=== PATIENT | male | born 1960 | race Caucasian/White ===

== ENCOUNTER 2017-03-27 04:26 | Inpatient (IN) | payer OTHER ==
[2017-03-27 04:40] VITALS: BMI 26.6
[2017-03-27] MEDS ORDERED: Sodium Chloride 0.9% 1,000 ML IV STA ×2 (04:59→08:17)
[2017-03-27] MEDS ORDERED: Morphine 2 mg/ml ISec IVP STA (04:59)
--- NOTE | 2017-03-27 05:07 | ED PDOC ---
Arrival/HPI - General Chief Complaint: Male Genitourinary Time Seen by Provider: 03/27/17 04:53 Historian: Patient - History of Present Illness Narrative History of Present Illness (Text): 03/27/17 04:57 57 year old male, whose past medical history includes diabetes and hypertension( noncompliant with medication), presents to the emergency department complaining of burning when urinating and noticeable blood in urine that began a few hours ago.Also with some occassional mild left flank discomfort. Patient denies any fever, chills, chest pain, shortness of breath, nausea, vomiting, diarrhea, back pain, neck pain, headache, dizziness, or any other complaints. PMD: None Time/Duration: 4-6 hours Symptom Onset: Sudden Symptom Course: Unchanged Activities at Onset: Light Context: Home Past Medical History - Provider Review Nursing Documentation Reviewed: Yes - Cardiac Hx Hypertension: Yes - Pulmonary Hx Respiratory Disorders: No - Neurological Hx Neurological Disorder: No - HEENT Hx HEENT Disorder: No - Renal Hx Renal Disorder: No - Endocrine/Metabolic Hx Diabetes Mellitus Type 2: Yes - Hematological/Oncological Hx Blood Disorders: No - Integumentary Hx Dermatological Disorder: No - Musculoskeletal/Rheumatological Hx Musculoskeletal Disorders: No - Gastrointestinal Hx Gastrointestinal Disorders: No - Genitourinary/Gynecological Hx Genitourinary Disorders: No - Psychiatric Hx Psychophysiologic Disorder: No Hx Substance Use: No - Surgical History Other/Comment: fistula removed - Anesthesia Hx Anesthesia: Yes Hx Anesthesia Reactions: No Hx Malignant Hyperthermia: No Family/Social History - Physician Review Nursing Documentation Reviewed: Yes Family/Social History: No Known Family HX Smoking Status: Former Smoker Hx Alcohol Use: Yes Frequency of alcohol use: Daily Hx Substance Use: No Allergies/Home Meds Allergies/Adverse Reactions: Allergies No Known Allergies Allergy (Verified 03/27/17 04:40) Home Medications: Home Meds Medication Instructions Recorded Confirmed Insulin Lispro [humALOG] 14 units SC DAILY 03/27/17 03/27/17 Review of Systems - Physician Review All systems were reviewed & negative as marked: Yes - Review of Systems Constitutional: absent: Fevers, Other (Chills) Respiratory: absent: SOB Cardiovascular: absent: Chest Pain Gastrointestinal: Abdominal Pain. absent: Diarrhea, Nausea, Vomiting Genitourinary Male: Dysuria, Hematuria. absent: Frequency Musculoskeletal: absent: Back Pain, Neck Pain Neurological: absent: Headache, Dizziness Physical Exam Vital Signs Reviewed: Yes Vital Signs Temp Pulse Resp BP Pulse Ox 03/27/17 06:38 105 H 18 165/102 H 100 03/27/17 05:48 113 H 173/108 H 03/27/17 05:39 114 H 18 173/108 H 100 03/27/17 04:26 99.0 F 117 H 18 170/122 H 100 Temperature: Afebrile Blood Pressure: Hypertensive Pulse: Tachycardic Respiratory Rate: Normal Appearance: Positive for: Well-Appearing, Non-Toxic, Comfortable Pain Distress: None Mental Status: Positive for: Alert and Oriented X 3 - Systems Exam Head: Present: Atraumatic, Normocephalic Pupils: Present: PERRL Extroacular Muscles: Present: EOMI Conjunctiva: Present: Normal Mouth: Present: Moist Mucous Membranes Neck: Present: Normal Range of Motion Respiratory/Chest: Present: Clear to Auscultation, Good Air Exchange. No: Respiratory Distress, Accessory Muscle Use Cardiovascular: Present: Regular Rate and Rhythm, Normal S1, S2. No: Murmurs Abdomen: Present: Normal Bowel Sounds. No: Tenderness, Distention, Peritoneal Signs Back: Present: Normal Inspection Upper Extremity: Present: Normal Inspection. No: Cyanosis, Edema Lower Extremity: Present: Normal Inspection. No: Edema Neurological: Present: GCS=15, CN II-XII Intact, Speech Normal Skin: Present: Warm, Dry, Normal Color. No: Rashes Psychiatric: Present: Alert, Oriented x 3, Normal Insight, Normal Concentration Medical Decision Making ED Course and Treatment: 03/27/17 04:57 Impression: 57 year old male presents complaining of left sided discomfort associated with urinary frequency, hematuria, and dysuria Plan: -- CT ABD & Pelvid w/o contrast -- Labs -- Morphine -- IV Fluids -- Urinalysis -- Reassess and disposition Progress Notes: - Lab Interpretations Lab Results: 03/27/17 05:15 03/27/17 05:15 Lab Results 03/27/17 05:15: WBC 10.3, RBC 5.22, Hgb 14.8, Hct 43.8, MCV 83.9, MCH 28.4, MCHC 33.8, RDW 12.6, Plt Count 161, MPV 11.2 H 03/27/17 05:15: Sodium 138, Potassium 4.6, Chloride 95 L, Carbon Dioxide 27, Anion Gap 21 H, BUN 13, Creatinine 1.0, Est GFR ( Amer) > 60, Est GFR ( Non-Af Amer) > 60, Random Glucose 308 H*, Calcium 9.8, Total Bilirubin 1.5 H, AST 41, ALT 78 H, Alkaline Phosphatase 106, Total Protein 8.5 H, Albumin 4.7, Globulin 3.8, Albumin/Globulin Ratio 1.2 03/27/17 05:15: Urine Color Red, Urine Appearance Turbid, Urine pH 6.5, Ur Specific Manson 1.015, Urine Protein >=300 H, Urine Glucose (UA) >=1000, Urine Ketones >=80, Urine Blood Large H, Urine Nitrate Positive H, Urine Bilirubin Negative, Urine Urobilinogen 2.0 H, Ur Leukocyte Esterase Moderate H, Urine RBC Tntc, Urine WBC 20 - 25, Ur Epithelial Cells 0 - 2, Urine Bacteria Small I have reviewed the lab results: Yes - RAD Interpretation Radiology Orders: 03/27/17 04:59 ABD & PELVIS W/O PO OR IV CONT [CT] Stat - Medication Orders Current Medication Orders: Ceftriaxone Sodium (Rocephin 1 Gram Ivpb) 1 gm in 100 mls @ 200 mls/hr IV ONCE STA PRN Reason: Protocol Stop: 03/27/17 07:21 Discontinued Medications Clonidine HCl (Catapres) 0.2 mg PO STAT STA Stop: 03/27/17 05:40 Last Admin: 03/27/17 05:48 Dose: 0.2 mg MAR Pulse and Blood Pressure Document 03/27/17 05:48 AD (Rec: 03/27/17 05:48 AD [id number]) Pulse Pulse Rate (60-90 beats/min) 113 Blood Pressure Blood Pressure (100/60-150/90 mm Hg) 173/108 Sodium Chloride (Sodium Chloride 0.9%) 1,000 mls @ 999 mls/hr IV .Q1H1M STA Stop: 03/27/17 05:59 Last Admin: 03/27/17 05:23 Dose: 999 mls/hr eMAR Start Stop Document 03/27/17 05:23 AD (Rec: 03/27/17 05:23 AD [id number]) Intravenous Solution Start Date 03/27/17 Start Time 05:23 Morphine Sulfate (Morphine) 2 mg IVP STAT STA Stop: 03/27/17 05:00 Last Admin: 03/27/17 05:23 Dose: 2 mg MAR Pain Assessment Document 03/27/17 05:23 AD (Rec: 03/27/17 05:24 AD [id number]) Pain Reassessment Is this a pain reassessment? No Presence of Pain Presence of Pain Yes Pain Scale Used Pain Scale Used Numeric Location Left, Right or Bilateral Left Upper or Lower Lower Pain Location Body Site Back Description Description Constant Intensity of Pain at present 5 IVP Administration Document 03/27/17 05:23 AD (Rec: 03/27/17 05:24 AD [id number]) Charges for Administration # of IVP Administrations 1 - Transfer of Care Patient signed out to Dr:: Dominguez Pending Radiology Studies:: CT Abd/Pelvis/reassess/final disposition - Scribe Statement The provider has reviewed the documentation as recorded by the Liya Toure Provider Scribe Attestation: All medical record entries made by the Prabhakaribzeenat were at my direction and personally dictated by me. I have reviewed the chart and agree that the record accurately reflects my personal performance of the history, physical exam, medical decision making, and the department course for this patient. I have also personally directed, reviewed, and agree with the discharge instructions and disposition. Disposition/Present on Arrival - Present on Arrival Any Indicators Present on Arrival: No History of DVT/PE: No History of Uncontrolled Diabetes: No Urinary Catheter: No History of Decub. Ulcer: No History Surgical Site Infection Following: None - Disposition Have Diagnosis and Disposition been Completed?: No Diagnosis: Hematuria, UTI (urinary tract infection) Disposition Time: 07:00 Condition: STABLE Referrals: PCP,NO [Primary Care Provider] - Follow up with primary Forms: [employer] (Malaysian)
[2017-03-27 06:10] LABS: PH,URINE 6.5 (4.7-8.0); URINE BILIRUBIN NEGATIVE (NEGATIVE); URINE BLOOD LARGE (NEGATIVE); URINE GLUCOSE (UA) >=1000 mg/dL (NEGATIVE); URINE LEUKOCYTE ESTERASE MODERATE Leu/uL (NEGATIVE); URINE NITRATE POSITIVE (NEGATIVE); URINE PROTEIN >=300 mg/dL (<30 mg/dL)
[2017-03-27 06:11] LABS: HEMOGLOBIN 14.8 g/dL (14.0-18.0); MEAN CELL VOLUME 83.9 fl (80.0-105.0); MEAN CORPUSCULAR HEMOGLOBIN 28.4 pg (25.0-35.0); MEAN CORPUSCULAR HGB CONC 33.8 g/dl (31.0-37.0); MEAN PLATELET VOLUME 11.2 fl (7.0-11.0); RBC 5.22 10^6/uL (3.5-6.1); RED CELL DISTRIBUTION WIDTH 12.6 % (11.5-14.5); WHITE BLOOD COUNT 10.3 10^3/ul (4.5-11.0)
[2017-03-27 06:16] LABS: URINE APPEARANCE TURBID (CLEAR); URINE COLOR RED (YELLOW)
[2017-03-27 06:30] LABS: URINE BACTERIA SMALL (NEG); URINE EPITHELIAL CELLS 0 - 2 /hpf (0-5); URINE RBC TNTC /hpf (0-2); URINE WBC 20 - 25 /hpf (0-6)
[2017-03-27 06:37] LABS: ALB/GLOB RATIO 1.2 (1.1-1.8); ALBUMIN 4.7 g/dL (3.0-4.8); ALT/SGPT 78 U/L (7-56); AST/SGOT 41 U/L (17-59); BLOOD UREA NITROGEN 13 mg/dL (7-21); CALCIUM 9.8 mg/dL (8.4-10.5); GFR AFRICAN-AMERICAN > 60; GFR NON-AFRICAN AMERICAN > 60
[2017-03-27] MEDS ORDERED: cefTRIAXone 1 gm 1 GM/100 ML BAG IV STA (06:52)
--- NOTE | 2017-03-27 07:13 | ED PDOC ---
Physical Exam Vital Signs Reviewed: Yes Vital Signs Temp Pulse Resp BP Pulse Ox 03/27/17 07:12 99.1 F 103 H 16 147/74 98 03/27/17 06:38 105 H 18 165/102 H 100 03/27/17 05:48 113 H 173/108 H 03/27/17 05:39 114 H 18 173/108 H 100 03/27/17 04:26 99.0 F 117 H 18 170/122 H 100 Temperature: Afebrile Blood Pressure: Hypertensive Pulse: Tachycardic Respiratory Rate: Normal Appearance: Positive for: Well-Appearing, Other (uncomfortable) Pain Distress: None Mental Status: Positive for: Alert and Oriented X 3 - Systems Exam Head: Present: Atraumatic, Normocephalic Pupils: Present: PERRL, Other (no nystagmus, no photophobia, sclera anicteric, visual field intact b/l) Extroacular Muscles: Present: EOMI Conjunctiva: Present: Normal Ears: Present: Normal Mouth: Present: Moist Mucous Membranes, Normal Teeth Pharnyx: Present: Normal Neck: Present: Normal Range of Motion Respiratory/Chest: Present: Clear to Auscultation, Good Air Exchange. No: Respiratory Distress, Accessory Muscle Use Cardiovascular: Present: Regular Rate and Rhythm, Normal S1, S2. No: Murmurs Abdomen: Present: Normal Bowel Sounds, Other (well nourished male, no anterior focal abd tenderness, no masses/rebound/guarding/rigidity, no arreola's sign, no mcburney's point tenderness). No: Tenderness, Distention, Peritoneal Signs Back: Present: Normal Inspection, CVA Tenderness (right CVAT, no midline tenderness, no step off) Upper Extremity: Present: Normal Inspection, Normal ROM, NORMAL PULSES, Neurovascularly Intact, Capillary Refill < 2s. No: Cyanosis, Edema Lower Extremity: Present: Normal Inspection, NORMAL PULSES, Normal ROM. No: Edema Neurological: Present: GCS=15, CN II-XII Intact, Speech Normal Skin: Present: Warm, Dry, Normal Color, Other (cap refill ~ 1sec, no ulcerations , no petechiae). No: Rashes Psychiatric: Present: Alert, Oriented x 3, Normal Insight, Normal Concentration Medical Decision Making ED Course and Treatment: 03/27/17 07:08 received pt endorsement from Dr. Cyrstal. pt is awaiting CT abd/pelvis results; concern for acute pyelonephritis/infected kidney stones; pt can be dispositioned accordingly 03/27/17 07:51 pt is currently comfortable pt is made aware of his medical lab results pt expressed concern regarding his lack of medication compliance 03/27/17 08:19 pt is made aware of his medical results agrees with admission oncall PCP/hospitalists was paged and contacted, Dr Sanchez made aware of pt's medical complaints and ED diagnostic findings; agrees with ED mgt/txt, and agrees with admission Re-evaluation Time: 07:52 Reassessment Condition: Re-examined, Improved - Lab Interpretations Lab Results: 03/27/17 05:15 03/27/17 05:15 Lab Results 03/27/17 05:15: WBC 10.3, RBC 5.22, Hgb 14.8, Hct 43.8, MCV 83.9, MCH 28.4, MCHC 33.8, RDW 12.6, Plt Count 161, MPV 11.2 H 03/27/17 05:15: Sodium 138, Potassium 4.6, Chloride 95 L, Carbon Dioxide 27, Anion Gap 21 H, BUN 13, Creatinine 1.0, Est GFR ( Amer) > 60, Est GFR ( Non-Af Amer) > 60, Random Glucose 308 H*, Calcium 9.8, Total Bilirubin 1.5 H, AST 41, ALT 78 H, Alkaline Phosphatase 106, Total Protein 8.5 H, Albumin 4.7, Globulin 3.8, Albumin/Globulin Ratio 1.2 03/27/17 05:15: Urine Color Red, Urine Appearance Turbid, Urine pH 6.5, Ur Specific [place] 1.015, Urine Protein >=300 H, Urine Glucose (UA) >=1000, Urine Ketones >=80, Urine Blood Large H, Urine Nitrate Positive H, Urine Bilirubin Negative, Urine Urobilinogen 2.0 H, Ur Leukocyte Esterase Moderate H, Urine RBC Tntc, Urine WBC 20 - 25, Ur Epithelial Cells 0 - 2, Urine Bacteria Small abnl UA, elevated GLUC I have reviewed the lab results: Yes Interpretation: Abnormal lab values (abnl U/A) - RAD Interpretation Radiology Orders: 03/27/17 04:59 ABD & PELVIS W/O PO OR IV CONT [CT] Stat IMPRESSION: 1. There is urinary bladder wall thickening. This is nonspecific but can be seen in the setting of cystitis, please correlate clinically. Close clinical and imaging followup is recommended to confirm resolution following treatment. 2. There is abrupt narrowing of the sigmoid colon (series 2, image 69). There is a moderate amount of stool proximal to this point. No obvious obstruction is present. Evaluation of the sigmoid colon is recommended. Followup colonoscopy is recommended if patient has not had a screening colonoscopy recently. 3. There is asymmetric soft tissue fullness in the right perineum (series 2, image 85). This may simply reflect patient's normal anatomy. Rectal examination is recommended. Thank you for allowing us to participate in the care of your patient. Dictated and Authenticated by: Tim Gann MD Layup Worker: Radiologist - Medication Orders Current Medication Orders: Sodium Chloride (Sodium Chloride 0.9%) 1,000 mls @ 100 mls/hr IV .Q10H [facility] Last Admin: 03/27/17 08:12 Dose: 100 mls/hr eMAR Start Stop Document 03/27/17 08:12 AB (Rec: 03/27/17 08:12 AB [id number]) Intravenous Solution Start Date 03/27/17 Start Time 08:12 End Date 03/27/17 Sodium Chloride (Sodium Chloride 0.9%) 1,000 mls @ 100 mls/hr IV .Q10H STA Stop: 03/27/17 18:16 Discontinued Medications Aspirin (Aspirin) 325 mg PO STAT STA Stop: 03/27/17 08:02 Last Admin: 03/27/17 08:08 Dose: 325 mg Clonidine HCl (Catapres) 0.2 mg PO STAT STA Stop: 03/27/17 05:40 Last Admin: 03/27/17 05:48 Dose: 0.2 mg MAR Pulse and Blood Pressure Document 03/27/17 05:48 AD (Rec: 03/27/17 05:48 AD [id number]) Pulse Pulse Rate (60-90) 113 Blood Pressure Blood Pressure (100/60-150/90) 173/108 Sodium Chloride (Sodium Chloride 0.9%) 1,000 mls @ 999 mls/hr IV .Q1H1M STA Stop: 03/27/17 05:59 Last Admin: 03/27/17 05:23 Dose: 999 mls/hr eMAR Start Stop Document 03/27/17 05:23 AD (Rec: 03/27/17 05:23 AD [id number]) Intravenous Solution Start Date 03/27/17 Start Time 05:23 Ceftriaxone Sodium (Rocephin 1 Gram Ivpb) 1 gm in 100 mls @ 200 mls/hr IV ONCE STA PRN Reason: Protocol Stop: 03/27/17 07:21 Last Admin: 03/27/17 07:09 Dose: 200 mls/hr eMAR Start Stop Document 03/27/17 07:09 AD (Rec: 03/27/17 07:10 AD [id number]) Intravenous Solution Start Date 03/27/17 Start Time 07:09 Morphine Sulfate (Morphine) 2 mg IVP STAT STA Stop: 03/27/17 05:00 Last Admin: 03/27/17 05:23 Dose: 2 mg MAR Pain Assessment Document 03/27/17 05:23 AD (Rec: 03/27/17 05:24 AD [id number]) Pain Reassessment Is this a pain reassessment? No Presence of Pain Presence of Pain Yes Pain Scale Used Pain Scale Used Numeric Location Left, Right or Bilateral Left Upper or Lower Lower Pain Location Body Site Back Description Description Constant Intensity of Pain at present 5 IVP Administration Document 03/27/17 05:23 AD (Rec: 03/27/17 05:24 AD [id number]) Charges for Administration # of IVP Administrations 1 Disposition/Present on Arrival - Present on Arrival Any Indicators Present on Arrival: No History of DVT/PE: No History of Uncontrolled Diabetes: No Urinary Catheter: No History of Decub. Ulcer: No History Surgical Site Infection Following: None - Disposition Have Diagnosis and Disposition been Completed?: Yes Diagnosis: Hematuria, UTI (urinary tract infection), Acute hyperglycemia, Uncontrolled diabetes mellitus, Non compliance w medication regimen Disposition: HOSPITALIZED Disposition Time: 08:21 Patient Plan: Admission Patient Problems: Current Active Problems Problem Status Onset Hematuria Acute UTI (urinary tract infection) Acute Acute hyperglycemia Acute Uncontrolled diabetes mellitus Acute Non compliance w medication regimen Acute Condition: STABLE Referrals: PCP,NO [Primary Care Provider] - Follow up with primary Forms: [employer] ([place]otho)
[2017-03-27] MEDS: Sodium Chloride 0.9% 1,000 ML IV SCH (08:12)
--- NOTE | 2017-03-27 08:23 | CT ---
EXAM: CT Abdomen and Pelvis Without Intravenous Contrast CLINICAL HISTORY: 57 years old, male; Pain; Abdominal pain; Flank; Left; Additional info: Left flank pain with blood in urine. TECHNIQUE: Axial computed tomography images of the abdomen and pelvis without intravenous contrast. All CT scans at this facility use one or more dose reduction techniques, viz.: automated exposure control; ma/kV adjustment per patient size (including targeted exams where dose is matched to indication; i.e. head); or iterative reconstruction technique. Coronal and sagittal reformatted images were created and reviewed. COMPARISON: No relevant prior studies available. FINDINGS: Lower thorax: No acute findings. ABDOMEN: Liver: There is fatty infiltration throughout the liver. Gallbladder and bile ducts: Unremarkable. No calcified stones. No ductal dilation. Pancreas: Unremarkable. No ductal dilation. Spleen: Unremarkable. No splenomegaly. Adrenals: Unremarkable. No mass. Kidneys and ureters: Unremarkable. No obstructing stones. No hydronephrosis. Stomach and bowel: There is abrupt narrowing of the sigmoid colon (series 2, image 69). There is a moderate amount of stool proximal to this point. No obvious obstruction is present. Evaluation of the sigmoid colon is recommended. Followup colonoscopy is recommended if patient has not had a screening colonoscopy recently. There is asymmetric soft tissue fullness in the right perineum (series 2, image 85). This may simply reflect patient's normal anatomy. Rectal examination is recommended. No mucosal thickening. Appendix: A normal appendix is identified. PELVIS: Bladder: There is urinary bladder wall thickening. This is nonspecific but can be seen in the setting of cystitis, please correlate clinically. No stones. Reproductive: The prostate is enlarged. ABDOMEN and PELVIS: Intraperitoneal space: Unremarkable. No free air. No significant fluid collection. Bones/joints: No acute fracture. No dislocation. Soft tissues: There are bilateral fat-containing inguinal hernias. Vasculature: There are calcified atherosclerotic changes of the aorta. No abdominal aortic aneurysm. Lymph nodes: Unremarkable. No enlarged lymph nodes. IMPRESSION: 1. There is urinary bladder wall thickening. This is nonspecific but can be seen in the setting of cystitis, please correlate clinically. Close clinical and imaging followup is recommended to confirm resolution following treatment. 2. There is abrupt narrowing of the sigmoid colon (series 2, image 69). There is a moderate amount of stool proximal to this point. No obvious obstruction is present. Evaluation of the sigmoid colon is recommended. Followup colonoscopy is recommended if patient has not had a screening colonoscopy recently. 3. There is asymmetric soft tissue fullness in the right perineum (series 2, image 85). This may simply reflect patient's normal anatomy. Rectal examination is recommended.
--- NOTE | 2017-03-27 09:19 | CP.PCM.HP ---
<Romario Villagran - Last Filed: 03/27/17 09:12> History of Present Illness - History of Present Illness History of Present Illness: Internal Medicine H&P for Hospitalist Service Romario Villagran, PGY-2 CC: Burning with urination and blood in urine HPI: This is a 57 yo M with PMH of DMII, HTN, HLD (medication non-compliant), and alcohol abuse (1 pint of vodka daily) who presents with complaint of burning with urination and trista hematuria that began at midnight. As per patient, he had sudden urge to go the bathroom at midnight, and felt burning while urinating, and then noticed the hematuria. Denies any similar episode in the past, any history of kidney stones or hematuria, nausea, emesis, diarrhea, constipation, decreased urinary flow, or urinary urge/frequency prior to the episode of hematuria. Since the first episode, he has urinated several more times, all with hematuria, although he reports his most recent voiding episode ( about 1 hr prior to exam in the ED) looks more clear/less bloody, and he is feeling better in general. Reports occasionally having shakes when not drinking , but none recently, and last drink was 6pm yesterday evening (~15 hrs with no alcohol). 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 He had multiple surgeries on it in the past with no resolution prior to coming to the [place], and had two further surgeries here , the last being a resection that resolved the issue. Denies any other abdominal surgeries, any obstruction or hematochezia/bright red blood per rectum. Denies any history of IBS. Admits to general malaise at presentation of symptoms last night, but currently denies fevers, chills, chest pain, shortness of breath, tremors, nausea, emesis, diarrhea, constipation, focal weakness, or non-healing wounds on lower extremities (checks daily). All other ROS in 12-system review negative. In the ED, CT abd/pelvis was obtained, notable for bladder wall thickening, no nephrolithiasis or obstruction noted, and no hydronephrosis noted. PMH: As above PSH: multiple unspecified colonic surgeries relating to fistula, fistula resection approximately 6 yrs prior, colonoscopy approx 3-4 yrs prior FHx: 2 sisters with hx of nephrolithiasis, HTN in multiple family members ( sisters and parents) SHx: former tobacco user (1ppd cigarettes for 24 yrs, quit 3 yrs prior), active alcohol abuse (1 pint per day of vodka, unable to state for how long), denies illicits/IVDA PMD: None, last saw a doctor > 1 yr prior Present on Admission - Present on Admission Any Indicators Present on Admission: Yes History of DVT/PE: No History of Uncontrolled Diabetes: Yes Urinary Catheter: No Decubitus Ulcer Present: No Review of Systems - Review of Systems All systems: reviewed and no additional remarkable complaints except (as per HPI ) Past Patient History - Past Social History Smoking Status: Former Smoker - CARDIAC Hx Hypertension: Yes - PULMONARY Hx Respiratory Disorders: No - NEUROLOGICAL Hx Neurological Disorder: No - HEENT Hx HEENT Problems: No - RENAL Hx Chronic Kidney Disease: No - ENDOCRINE/METABOLIC Hx Diabetes Mellitus Type 2: Yes - HEMATOLOGICAL/ONCOLOGICAL Hx Blood Disorders: No - INTEGUMENTARY Hx Dermatological Problems: No - MUSCULOSKELETAL/RHEUMATOLOGICAL Hx Musculoskeletal Disorders: No - GASTROINTESTINAL Hx Gastrointestinal Disorders: No - GENITOURINARY/GYNECOLOGICAL Hx Genitourinary Disorders: No - PSYCHIATRIC Hx Psychophysiologic Disorder: No Hx Substance Use: No - SURGICAL HISTORY Other/Comment: fistula removed - ANESTHESIA Hx Anesthesia: Yes Hx Anesthesia Reactions: No Hx Malignant Hyperthermia: No Meds Allergies/Adverse Reactions: Allergies Allergy/AdvReac Type Severity Reaction Status Date / Time No Known Allergies Allergy Verified 03/27/17 04:40 Physical Exam - Constitutional Appears: Well, Non-toxic, No Acute Distress - Head Exam Head Exam: ATRAUMATIC, NORMAL INSPECTION, NORMOCEPHALIC - Eye Exam Eye Exam: EOMI. absent: Conjunctival injection, Normal appearance, Scleral icterus (dirty sclera, but not grossly icteric) Pupil Exam: absent: Irregular, Unequal - ENT Exam ENT Exam: Mucous Membranes Moist - Neck Exam Neck exam: Positive for: Full Rom, Normal Inspection - Respiratory Exam Respiratory Exam: Clear to Auscultation Bilateral, NORMAL BREATHING PATTERN. absent: Accessory Muscle Use, Chest Wall Tenderness, Decreased Breath Sounds, Prolonged Expiratory Phase, Rales, Rhonchi, Wheezes - Cardiovascular Exam Cardiovascular Exam: Tachycardia, REGULAR RHYTHM, +S1, +S2. absent: Bradycardia , Irregular Rhythm, JVD, +S4 - GI/Abdominal Exam GI & Abdominal Exam: Normal Bowel Sounds, Soft, Tenderness (mild discomfort to palpation at LLQ radiating to left flank, mild L CVA tenderness). absent: Diminished Bowel Sounds, Distended (obese but not distended), Firm, Guarding, Hyperactive Bowel Sounds, Hypoactive Bowel Sounds, Organomegaly, Rigid Additional comments: no appreciable fluid wave or caput medusa - Rectal Exam Rectal Exam: Deferred - Extremities Exam Extremities exam: Positive for: pedal pulses present (faintly palpable +1 dorsalis pedis bilaterally). Negative for: calf tenderness, normal inspection, pedal edema, tenderness Additional comments: multiple spots of waxy-appearing sking on bilateral LE from mid-damon to feet, cool and dry bilateral LE; concerning for mild PVD - Back Exam Back exam: CVA tenderness (L) (mildly tender to percussion). absent: CVA tenderness (R), muscle spasm - Neurological Exam Neurological exam: Alert, Oriented x3 Additional comments: awake and alert, moving all extremities spontaneously, following all commands appropriately - Psychiatric Exam Psychiatric exam: Normal Affect, Normal Mood - Skin Skin Exam: Dry, Intact, Normal Color, Warm Additional comments: except as noted on extremities exam Results - Vital Signs Recent Vital Signs: Last Vital Signs Temp 99.1 F 03/27/17 07:12 Pulse 103 H 03/27/17 07:12 Resp 16 03/27/17 07:12 BP 147/74 03/27/17 07:12 Pulse Ox 98 03/27/17 07:12 - Labs Result Diagrams: 03/27/17 05:15 03/27/17 05:15 Assessment & Plan - Assessment and Plan (Free Text) Assessment: This is a 57 yo M with PMH of DMII, HTN, HLD (medication non-compliant), and alcohol abuse (1 pint of vodka daily) who presents with complaint of burning with urination and trista hematuria that began at midnight. He is being admitted for UTI, and likely cystitis vs possible developing pyelonephritis in the setting of uncontrolled DM. Plan: 1) Burning urination with trista hematuria - improving while in the ED -Cystitis vs obstructing nephrolithiasis vs Bladder diverticuli vs pyelonephritis -UA notable for positive nitrates, moderate leuk esterase, TNTC RBCs, and 20-25 WBCs; also notable for elevated protein and glucose in urine, consistent with uncontrolled HTN and DM -CT abd/pelvis obtained in ED, notable for bladder wall thickening, but no nephrolithiasis/hydronephrosis, so not nephrolithiasis and less likely pyelonephritis -Received rocephin IVPB in ED, will continue -Urine cultures pending, will f/u 2) Uncontrolled DM -A1c ordered, blood glucose in ED 301 -Gap present on initial labs, but may be false due to dehydration (patient reports frequent urination for 9 hours and no PO intake for ~12 hours), will repeat after receiving IV fluids and reassess -Medium sliding scale insulin with meals, Consistent carb diet ordered -instrument man consulted 3) HTN -received Clonidine x1 in ED for BPs 170's/100's, now in 140's/70's -Cr 1.0, so will start on Lisinopril for HTN, cardio and renal protective, especially in setting of DM -continue to monitor 4) Elevated Total bilirubin -may be 2/2 alcohol abuse, although AST/ALT ratio not consistent with alcohol -Direct bilirubin ordered, will follow up -Hepatitis panel ordered, will follow up -fatty infiltration of liver noted on CT Abd/pelvis 5) Alcohol abuse -Alcohol level ordered -CIWA protocol ordered, Ativan 1mg IVP q6 PRN ordered -Banana bag x1, Multivitamin/Folic Acid/Thiamine daily PO ordered -will obtain EKG to assess QTc 6) Sigmoid colon narrowing on CT abd/pelvis -unlikely obstruction, patient reports moving bowels daily without difficulty, not using daily laxatives, not straining daily -narrowing may be secondary to colonic fistula resection (site of fistula and resection unclear, patient unable to specify) -no need for acute intervention at this time, can revisit if patient develops difficulty moving bowels or develops signs/symptoms of obstruction Dispo: Med/Surg for IV antibiotic and IV fluids for likely cystitis in setting of uncontrolled DM FEN: Consistent carb, Banana bag x1, NS 100cc/hr, Thiamine/Folic acid/ multivitamin daily Access: Peripheral IV Consults: Diabetic education Ppx: Protonix for GI, SCDs for DVT Patient seen, reviewed, and discussed with attending, Dr. Sanchez. Decision To Admit - Pt Status Changed To: Hospital Disposition Of: Inpatient Admission - Admit Certification Admit to Inpatient:: After my assessment, the patient will require hospitalization for at least two midnights. This is because of the severity of symptoms shown, intensity of services needed, and/or the medical risk in this patient being treated as an outpatient. - . Bed Request Type: Med/Surg <Ruth Sanchez B - Last Filed: 03/27/17 18:28> Results - Vital Signs Recent Vital Signs: Last Vital Signs Temp 99 F 03/27/17 15:53 Pulse 97 H 03/27/17 15:53 Resp 18 03/27/17 15:53 BP 142/92 H 03/27/17 15:53 Pulse Ox 98 03/27/17 15:53 - Labs Result Diagrams: 03/27/17 05:15 03/27/17 14:10 Labs: Laboratory Results - last 24 hr 03/27/17 03/27/17 03/27/17 09:30 09:30 09:30 Sodium Potassium Chloride Carbon Dioxide Anion Gap BUN Creatinine Est GFR ( Amer) Est GFR (Non-Af Amer) POC Glucose (mg/dL) Random Glucose Hemoglobin A1c 12.4 H Calcium Direct Bilirubin 0.7 H Triglycerides 222 H Cholesterol 408 H LDL Cholesterol Direct 294 H HDL Cholesterol 63 H Alcohol, Quantitative < 10 03/27/17 03/27/17 03/27/17 11:30 14:10 16:15 Sodium 132 Potassium 4.1 Chloride 95 L Carbon Dioxide 29 Anion Gap 11 BUN 18 Creatinine 1.1 Est GFR ( Amer) > 60 Est GFR (Non-Af Amer) > 60 POC Glucose (mg/dL) 247 H 300 H Random Glucose 352 H* Hemoglobin A1c Calcium 8.7 Direct Bilirubin Triglycerides Cholesterol LDL Cholesterol Direct HDL Cholesterol Alcohol, Quantitative Attending/Attestation - Attestation I have personally seen and examined this patient.: Yes I have fully participated in the care of the patient.: Yes I have reviewed all pertinent clinical information: Yes Notes (Text): This is a 57 yo M with PMH of DMII, HTN, HLD (medication non-compliant), and alcohol abuse (1 pint of vodka daily) who presents with complaint of burning with urination and trista hematuria that began at midnight. As per patient, he had sudden urge to go the bathroom at midnight, and felt burning while urinating , and then noticed the hematuria. Denies any similar episode in the past, any history of kidney stones or hematuria, nausea, emesis, diarrhea, constipation, decreased urinary flow, or urinary urge/frequency prior to the episode of hematuria. Since the first episode, he has urinated several more times, all with hematuria, although he reports his most recent voiding episode (about 1 hr prior to exam in the ED) looks more clear/less bloody, and he is feeling better in general. Reports occasionally having shakes when not drinking, but none recently, and last drink was 6pm yesterday evening (~15 hrs with no alcohol). 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 He had multiple surgeries on it in the past with no resolution prior to coming [place], and had two further surgeries here, the last being a resection that resolved the issue. Denies any other abdominal surgeries, any obstruction or hematochezia/bright red blood per rectum. Denies any history of IBS. Admits to general malaise at presentation of symptoms last night, but currently denies fevers, chills, chest pain, shortness of breath, tremors, nausea, emesis, diarrhea, constipation, focal weakness, or non-healing wounds on lower extremities (checks daily). All other ROS in 12-system review negative. In the ED, CT abd/pelvis was obtained, notable for bladder wall thickening, no nephrolithiasis or obstruction noted, and no hydronephrosis noted. PMH: As above PSH: multiple unspecified colonic surgeries relating to fistula, fistula resection approximately 6 yrs prior, colonoscopy approx 3-4 yrs prior FHx: 2 sisters with hx of nephrolithiasis, HTN in multiple family members ( sisters and parents) SHx: former tobacco user (1ppd cigarettes for 24 yrs, quit 3 yrs prior), active alcohol abuse (1 pint per day of vodka, unable to state for how long), denies illicits/IVDA PMD: None, last saw a doctor > 1 yr prior
[2017-03-27] MEDS ORDERED: Multivitamin (MVI) 10 ML, Thiamine 100 MG, Folic Acid 1 MG in Sodium Chloride 0.9% 1,00... IV ONE (09:21)
[2017-03-27] MEDS: Pantoprazole 40 mg EC Tab PO SCH (10:23)
[2017-03-27 10:40] LABS: BILIRUBIN,DIRECT 0.7 mg/dL (0.0-0.4)
[2017-03-27] MEDS: Insulin Lispro (humaLOG) MEDIUM Coverage SC SCH ×3 (12:09→22:01)
[2017-03-27 14:36] LABS: BLOOD UREA NITROGEN 18 mg/dL (7-21); CALCIUM 8.7 mg/dL (8.4-10.5); GFR AFRICAN-AMERICAN > 60; GFR NON-AFRICAN AMERICAN > 60
[2017-03-27] MEDS ORDERED: Influenza Vaccine 60 mcg/0.5 mL SYR (4YR UP) IM ONE (15:00)
[2017-03-27] MEDS ORDERED: Pneumococcal 23-Valent Vaccine IM ONE (15:00)
[2017-03-27] MEDS ORDERED: Insulin Detemir 100 units/ml Vial (Levemir) SC SCH (22:00)
[2017-03-28] MEDS: Pantoprazole 40 mg EC Tab PO SCH (06:27)
[2017-03-28 07:30] LABS: BASO # 0.02 K/mm3 (0.0-2.0); BASO % 0.2 % (0.0-3.0); EOS # 0.1 (0.0-0.7); EOS % 1.2 % (1.5-5.0); GRAN # 5.92 (1.4-6.5); LYMPH # 1.7 (1.2-3.4); LYMPH % 20.3 % (22.0-35.0); MEAN CELL VOLUME 84.9 fl (80.0-105.0); MEAN CORPUSCULAR HEMOGLOBIN 27.8 pg (25.0-35.0); MEAN CORPUSCULAR HGB CONC 32.8 g/dl (31.0-37.0); MEAN PLATELET VOLUME 10.9 fl (7.0-11.0); MONO # 0.7 (0.1-0.6); MONO % 8.3 % (1.0-6.0); RBC 4.31 10^6/uL (3.5-6.1); RED CELL DISTRIBUTION WIDTH 12.7 % (11.5-14.5); WHITE BLOOD COUNT 8.5 10^3/ul (4.5-11.0)
[2017-03-28 07:48] LABS: ALB/GLOB RATIO 1.1 (1.1-1.8); ALBUMIN 3.7 g/dL (3.0-4.8); ALT/SGPT 48 U/L (7-56); AST/SGOT 26 U/L (17-59); BLOOD UREA NITROGEN 16 mg/dL (7-21); CALCIUM 8.5 mg/dL (8.4-10.5); GFR AFRICAN-AMERICAN > 60; GFR NON-AFRICAN AMERICAN > 60; MAGNESIUM 2.2 mg/dL (1.7-2.2)
[2017-03-28] MEDS: Insulin Lispro (humaLOG) MEDIUM Coverage SC SCH ×4 (08:33→22:13)
[2017-03-28] MEDS: Multivitamin With Minerals Tab PO SCH (08:33)
[2017-03-28] MEDS: cefTRIAXone 2 GM IN NS 2 GM/100 ML BAG IVPB SCH (10:29)
[2017-03-28] MEDS: Sodium Chloride 0.9% 1,000 ML IV SCH (10:44)
[2017-03-28] MEDS ORDERED: Insulin Detemir 100 units/ml Vial (Levemir) SC SCH (11:52)
[2017-03-28 12:20] LABS: HEPATITIS B SURFACE AG NEGATIVE (NEGATIVE)
[2017-03-28 12:25] LABS: HEPATITIS A IGM NEGATIVE (NEGATIVE); HEPATITIS B CORE AB Negative (NEGATIVE)
[2017-03-28 12:36] LABS: HEPATITIS C ANTIBODY Negative (NEGATIVE)
--- NOTE | 2017-03-28 15:25 | CP.PCM.PN ---
<Hugo Downey - Last Filed: 03/28/17 15:15> Subjective - Date & Time of Evaluation Date of Evaluation: 03/28/17 Time of Evaluation: 15:15 - Subjective Subjective: Medicine Progress Note Pt seen and examined at bedside. No acute overnight events. Pt states that dysuria and hematuria have resolved. Pt denied CP, SOB, nausea, vomiting, diarrhea, abdominal pain, fever, chills, CAR, or dizziness. Objective - Vital Signs/Intake and Output Vital Signs (last 24 hours): Temp Pulse Resp BP Pulse Ox 98.8 F 90 18 143/90 98 03/28/17 07:00 03/28/17 10:28 03/28/17 07:00 03/28/17 10:28 03/28/17 07:00 Intake and Output: 03/28/17 03/28/17 06:59 18:59 Intake Total 840 480 Output Total 700 600 Balance 140 -120 - Medications Medications: Current Medications Atorvastatin Calcium (Lipitor) 80 mg PO DIN [facility] Last Admin: 03/27/17 17:02 Dose: 80 mg Folic Acid (Folic Acid) 1 mg PO DAILY [facility] Last Admin: 03/28/17 10:28 Dose: 1 mg Sodium Chloride (Sodium Chloride 0.9%) 1,000 mls @ 100 mls/hr IV .Q10H [facility] Last Admin: 03/28/17 10:44 Dose: 100 mls/hr Ceftriaxone Sodium (Rocephin 2 Gm Ivpb) 2 gm in 100 mls @ 100 mls/hr IVPB DAILY [facility] PRN Reason: Protocol Last Admin: 03/28/17 10:29 Dose: 100 mls/hr Insulin Detemir (Levemir) 15 unit SC HS [facility] Insulin Human Lispro (Humalog Med) 0 units SC ACHS [facility] PRN Reason: Protocol Last Admin: 03/28/17 12:10 Dose: 3 units Lisinopril (Zestril) 5 mg PO DAILY [facility] Last Admin: 03/28/17 10:28 Dose: 5 mg Lorazepam (Ativan) 1 mg IVP Q6H PRN; Protocol PRN Reason: Anxiety Multivitamins/Minerals (Therapeutic-M Tab) 1 tab PO 0800 [facility] Last Admin: 03/28/17 08:33 Dose: 1 tab Ondansetron HCl (Zofran Inj) 4 mg IVP Q6H PRN PRN Reason: Nausea/Vomiting Pantoprazole Sodium (Protonix Ec Tab) 40 mg PO 0600 [facility] Last Admin: 03/28/17 06:27 Dose: 40 mg Thiamine HCl (Vitamin B1 Tab) 100 mg PO DAILY [facility] Last Admin: 03/28/17 10:28 Dose: 100 mg - Labs Labs: 03/28/17 07:00 03/28/17 07:00 - Constitutional Appears: No Acute Distress - Head Exam Head Exam: NORMAL INSPECTION - Eye Exam Eye Exam: Normal appearance - ENT Exam ENT Exam: Normal Exam - Neck Exam Neck Exam: Normal Inspection - Respiratory Exam Respiratory Exam: Clear to Ausculation Bilateral. absent: Rales, Rhonchi, Wheezes - Cardiovascular Exam Cardiovascular Exam: RRR, +S1, +S2. absent: Gallop, Rubs, Murmur - GI/Abdominal Exam GI & Abdominal Exam: Soft. absent: Distended, Guarding, Tenderness, Rebound - Extremities Exam Extremities Exam: Normal Inspection - Back Exam Back Exam: NORMAL INSPECTION - Neurological Exam Neurological Exam: Alert, Awake, Oriented x3 - Psychiatric Exam Psychiatric exam: Normal Affect, Normal Mood - Skin Skin Exam: Dry, Intact, Normal Color, Warm Assessment and Plan - Assessment and Plan (Free Text) Assessment: 57 yo M with PMH of DMII, HTN, HLD (medication non-compliant), and alcohol abuse (1 pint of vodka daily) who presents with complaint of burning with urination and trista hematuria that began at midnight. He is being admitted for UTI, and likely cystitis vs possible developing pyelonephritis in the setting of uncontrolled DM. Plan: 1. UTI, cystitis - UA notable for UTI; also notable for elevated protein and glucose in urine, consistent with uncontrolled HTN and DM - CT abd/pelvis obtained in ED, notable for bladder wall thickening, but no nephrolithiasis/hydronephrosis - Cont Rocephin - Urine cultures positive for gram negative rods, f/u sensitivities 2. Uncontrolled DM - A1c 12.4% - Normal anion gap - ISS - Levemir 15 units HS - Accuchecks ACHS - Carb consistent diet - diabetes educator consulted - Pt will f[facility] 3. HTN - Cont Lisinopril - continue to monitor 4. Transaminitis, resolved - Elevated on admission, resolved - Hep panel negative - fatty infiltration of liver noted on CT Abd/pelvis - Cont to monitor 5. Alcohol abuse - EtOH level < 10 -CIWA 0 - Has not required prn Ativan - Multivitamin/Folic Acid/Thiamine daily PO ordered - EKG shows QTc 457 6. H/o HLD - TG 222, Total Chol 408, LDL 294, HDL 63 - Cont Lipitor 80 mg daily 7. Sigmoid colon narrowing on CT abd/pelvis - unlikely obstruction, patient reports moving bowels daily without difficulty, not using daily laxatives, not straining daily - narrowing may be secondary to colonic fistula resection (site of fistula and resection unclear, patient unable to specify) - no need for acute intervention at this time, can revisit if patient develops difficulty moving bowels or develops signs/symptoms of obstruction GI/DVT PPx - Protonix - SCDs Pt seen and discussed in detail with Dr. Sanchez. Diego Downey, PGY1 <Ruth Sanchez - Last Filed: 03/28/17 16:54> Objective - Vital Signs/Intake and Output Vital Signs (last 24 hours): Temp Pulse Resp BP Pulse Ox 99.3 F 82 20 125/81 97 03/28/17 16:22 03/28/17 16:22 03/28/17 16:22 03/28/17 16:22 03/28/17 16:22 Intake and Output: 03/28/17 03/28/17 06:59 18:59 Intake Total 840 480 Output Total 700 600 Balance 140 -120 - Medications Medications: Current Medications Atorvastatin Calcium (Lipitor) 80 mg PO DIN [facility] Last Admin: 03/27/17 17:02 Dose: 80 mg Folic Acid (Folic Acid) 1 mg PO DAILY [facility] Last Admin: 03/28/17 10:28 Dose: 1 mg Sodium Chloride (Sodium Chloride 0.9%) 1,000 mls @ 100 mls/hr IV .Q10H [facility] Last Admin: 03/28/17 10:44 Dose: 100 mls/hr Ceftriaxone Sodium (Rocephin 2 Gm Ivpb) 2 gm in 100 mls @ 100 mls/hr IVPB DAILY [facility] PRN Reason: Protocol Last Admin: 03/28/17 10:29 Dose: 100 mls/hr Insulin Detemir (Levemir) 15 unit SC HS [facility] Insulin Human Lispro (Humalog Med) 0 units SC ACHS [facility] PRN Reason: Protocol Last Admin: 03/28/17 12:10 Dose: 3 units Lisinopril (Zestril) 5 mg PO DAILY [facility] Last Admin: 03/28/17 10:28 Dose: 5 mg Lorazepam (Ativan) 1 mg IVP Q6H PRN; Protocol PRN Reason: Anxiety Multivitamins/Minerals (Therapeutic-M Tab) 1 tab PO 0800 [facility] Last Admin: 03/28/17 08:33 Dose: 1 tab Ondansetron HCl (Zofran Inj) 4 mg IVP Q6H PRN PRN Reason: Nausea/Vomiting Pantoprazole Sodium (Protonix Ec Tab) 40 mg PO 0600 [facility] Last Admin: 03/28/17 06:27 Dose: 40 mg Thiamine HCl (Vitamin B1 Tab) 100 mg PO DAILY [facility] Last Admin: 03/28/17 10:28 Dose: 100 mg - Labs Labs: 03/28/17 07:00 03/28/17 07:00 Attending/Attestation - Attestation I have personally seen and examined this patient.: Yes I have fully participated in the care of the patient.: Yes I have reviewed all pertinent clinical information, including history, physical exam and plan: Yes Notes (Text): I have seen and examined the patient at bedside. Agree with the above note with the following additions/ exceptions: Briefly this is 57 year old male with history of DM-2, HTN, HLD , and alcohol abuse who came for evaluation of dysuria , hematuria and found to have cystitis. Urine culture is growing gram negative leonardo. He is on rocephin. Patient was also found to have uncontrolled DM due to non compliance. He was started on levemir. Will adjust his dosage. diabetes educator consult pending. Continue lipitor. Patient is not going thru alcohol withdrawal. Upon discharge patient will follow up [place] [facility]. Dr Ruth Sanchez
--- NOTE | 2017-03-28 17:42 | CARD ---
APPROVED REPORT EKG Measurement Heart [id number] <Conclusion> Poor data quality, interpretation may be adversely affected Normal sinus rhythm Normal ECG
[2017-03-29] MEDS: Sodium Chloride 0.9% 1,000 ML IV SCH (06:00)
[2017-03-29] MEDS: Pantoprazole 40 mg EC Tab PO SCH (07:03)
[2017-03-29 07:04] LABS: BASO # 0.01 K/mm3 (0.0-2.0); BASO % 0.2 % (0.0-3.0); EOS # 0.1 (0.0-0.7); EOS % 2.1 % (1.5-5.0); GRAN # 2.79 (1.4-6.5); GRAN % 57.3 % (50.0-68.0); HEMOGLOBIN 11.8 g/dL (14.0-18.0); LYMPH # 1.4 (1.2-3.4); LYMPH % 27.7 % (22.0-35.0); MEAN CELL VOLUME 84.8 fl (80.0-105.0); MEAN PLATELET VOLUME 10.8 fl (7.0-11.0); MONO # 0.6 (0.1-0.6); MONO % 12.7 % (1.0-6.0); RBC 4.22 10^6/uL (3.5-6.1); RED CELL DISTRIBUTION WIDTH 12.5 % (11.5-14.5); WHITE BLOOD COUNT 4.9 10^3/ul (4.5-11.0)
[2017-03-29 07:09] LABS: ALB/GLOB RATIO 1.1 (1.1-1.8); ALBUMIN 3.5 g/dL (3.0-4.8); ALT/SGPT 47 U/L (7-56); AST/SGOT 31 U/L (17-59); BLOOD UREA NITROGEN 15 mg/dL (7-21); CALCIUM 8.5 mg/dL (8.4-10.5); GFR AFRICAN-AMERICAN > 60; GFR NON-AFRICAN AMERICAN > 60; MAGNESIUM 2.2 mg/dL (1.7-2.2)
[2017-03-29 08:17] VITALS: RESP 18
[2017-03-29 08:26] VITALS: BP 144/90; PULSE 86; TEMP 99.2; O2SAT 100
[2017-03-29] MEDS: Multivitamin With Minerals Tab PO SCH (08:56)
[2017-03-29] MEDS: Insulin Lispro (humaLOG) MEDIUM Coverage SC SCH ×2 (08:56→11:50)
[2017-03-29] MEDS: cefTRIAXone 2 GM IN NS 2 GM/100 ML BAG IVPB SCH (09:57)
--- NOTE | 2017-03-29 13:47 | CP.PCM.DIS ---
<Hugo Downey - Last Filed: 03/29/17 13:37> Provider - Provider Date of Admission: 03/27/17 08:15 Attending physician: Ruth Sanchez MD Primary care physician: NO PRIMARY CARE PROVIDER Time Spent in preparation of Discharge (in minutes): 45 Hospital Course - Lab Results Lab Results: Most Recent Lab Values WBC 4.9 10^3/ul (4.5-11.0) D 03/29/17 06:00 RBC 4.22 10^6/uL (3.5-6.1) 03/29/17 06:00 Hgb 11.8 g/dL (14.0-18.0) L 03/29/17 06:00 Hct 35.8 % (42.0-52.0) L 03/29/17 06:00 MCV 84.8 fl (80.0-105.0) 03/29/17 06:00 MCH 28.0 pg (25.0-35.0) 03/29/17 06:00 MCHC 33.0 g/dl (31.0-37.0) 03/29/17 06:00 RDW 12.5 % (11.5-14.5) 03/29/17 06:00 Plt Count 147 10^3/uL (120.0-450.0) 03/29/17 06:00 MPV 10.8 fl (7.0-11.0) 03/29/17 06:00 Gran % 57.3 % (50.0-68.0) 03/29/17 06:00 Lymph % (Auto) 27.7 % (22.0-35.0) 03/29/17 06:00 [place] % (Auto) 12.7 % (1.0-6.0) H 03/29/17 06:00 Eos % (Auto) 2.1 % (1.5-5.0) 03/29/17 06:00 Baso % (Auto) 0.2 % (0.0-3.0) 03/29/17 06:00 Gran # 2.79 (1.4-6.5) 03/29/17 06:00 Lymph # 1.4 (1.2-3.4) 03/29/17 06:00 [place] # 0.6 (0.1-0.6) 03/29/17 06:00 Eos # 0.1 (0.0-0.7) 03/29/17 06:00 Baso # 0.01 K/mm3 (0.0-2.0) 03/29/17 06:00 Sodium 135 mmol/L (132-148) 03/29/17 06:00 Potassium 4.1 mmol/L (3.6-5.0) 03/29/17 06:00 Chloride 101 mmol/L (98-107) 03/29/17 06:00 Carbon Dioxide 26 mmol/L (21-33) 03/29/17 06:00 Anion Gap 13 (10-20) 03/29/17 06:00 BUN 15 mg/dL (7-21) 03/29/17 06:00 Creatinine 0.9 mg/dl (0.8-1.5) 03/29/17 06:00 Est GFR ( Amer) > 60 03/29/17 06:00 Est GFR (Non-Af Amer) > 60 03/29/17 06:00 POC Glucose (mg/dL) 265 mg/dL (65-110) H 03/29/17 11:27 Random Glucose 224 mg/dL (70-110) H 03/29/17 06:00 Hemoglobin A1c 12.4 % (4.2-6.5) H 03/27/17 09:30 Calcium 8.5 mg/dL (8.4-10.5) 03/29/17 06:00 Phosphorus 3.1 mg/dL (2.5-4.5) 03/29/17 06:00 Magnesium 2.2 mg/dL (1.7-2.2) 03/29/17 06:00 Total Bilirubin 0.7 mg/dL (0.2-1.3) 03/29/17 06:00 Direct Bilirubin 0.7 mg/dL (0.0-0.4) H 03/27/17 09:30 AST 31 U/L (17-59) 03/29/17 06:00 ALT 47 U/L (7-56) 03/29/17 06:00 Alkaline Phosphatase 71 U/L (38-126) 03/29/17 06:00 Total Protein 6.7 g/dL (5.8-8.3) 03/29/17 06:00 Albumin 3.5 g/dL (3.0-4.8) 03/29/17 06:00 Globulin 3.2 gm/dL 03/29/17 06:00 Albumin/Globulin Ratio 1.1 (1.1-1.8) 03/29/17 06:00 Triglycerides 222 mg/dL (35-160) H 03/27/17 09:30 Cholesterol 408 mg/dL (130-200) H 03/27/17 09:30 LDL Cholesterol Direct 294 mg/dL (0-129) H 03/27/17 09:30 HDL Cholesterol 63 mg/dL (29-60) H 03/27/17 09:30 Urine Color Red (YELLOW) 03/27/17 05:15 Urine Appearance Turbid (CLEAR) 03/27/17 05:15 Urine pH 6.5 (4.7-8.0) 03/27/17 05:15 Ur Specific [place] 1.015 (1.005-1.035) 03/27/17 05:15 Urine Protein >=300 mg/dL (<30 mg/dL) H 03/27/17 05:15 Urine Glucose (UA) >=1000 mg/dL (NEGATIVE) 03/27/17 05:15 Urine Ketones >=80 mg/dL (NEGATIVE) 03/27/17 05:15 Urine Blood Large (NEGATIVE) H 03/27/17 05:15 Urine Nitrate Positive (NEGATIVE) H 03/27/17 05:15 Urine Bilirubin Negative (NEGATIVE) 03/27/17 05:15 Urine Urobilinogen 2.0 E.U./dL (<1 E.U./dL) H 03/27/17 05:15 Ur Leukocyte Esterase Moderate [place]/uL (NEGATIVE) H 03/27/17 05:15 Urine RBC Tntc /hpf (0-2) 03/27/17 05:15 Urine WBC 20 - 25 /hpf (0-6) 03/27/17 05:15 Ur Epithelial Cells 0 - 2 /hpf (0-5) 03/27/17 05:15 Urine Bacteria Small (NEG) 03/27/17 05:15 Alcohol, Quantitative < 10 mg/dL (0-10) 03/27/17 09:30 Hepatitis A IgM Ab Negative (NEGATIVE) 03/27/17 09:30 Hep Bs Antigen Negative (NEGATIVE) 03/27/17 09:30 Hep B Core IgM Ab Negative (NEGATIVE) 03/27/17 09:30 Hepatitis C Antibody Negative (NEGATIVE) 03/27/17 09:30 - Hospital Course Hospital Course: 57 yo M with PMH of DMII, HTN, HLD (medication non-compliant), and alcohol abuse (1 pint of vodka daily) who presented with complaint of burning with urination and trista hematuria that began at midnight. As per patient, he had sudden urge to go the bathroom at midnight, and felt burning while urinating, and then noticed the hematuria. In the ED, UA was positive for UTI, but was not septic. Patient was admitted for evaluation and treatment for cystitis. During hospital course, patient was placed on IV abx for UTI. Urine was cultured and was positive for E. coli. Pt has longstanding uncontrolled diabetes with HgA1c 12.4%. Pt was placed on a basal-bolus insulin regimen. HTN was controlled. Pt was placed on CIWA for possible alcohol withdrawal, but did not require prn Ativan. Today, patient was seen and examined at bedside. As patient was medically stable, he was discharged. Per sensitivities patient was given an rx for oral ciprofloxacin. Pt was given prescriptions for insulin, glucometer, strips, and lancets. Patient was instructed on proper use of insulin and counselled on the risks of and benefits of using insulin. Pt was also counselled on the risks of alcohol use and advised cessation. Pt advised to keep to a low carb, fat, sugar, and salt diet and to follow up with [facility] [place] [facility] Discharge Diagnosis 1. Cystitis 2. IDDM 3. HTN 4. HLD Discharge Medications - Ciprofloxacin 500 mg PO BID - Levemir 18 units HS - Humalog sliding scale - Glucometer, test strips, lancets Discharge Exam - Head Exam Head Exam: NORMAL INSPECTION - Eye Exam Eye Exam: Normal appearance - ENT Exam ENT Exam: Normal Exam - Neck Exam Neck exam: Normal Inspection - Respiratory Exam Respiratory Exam: Clear to PA & Lateral. absent: Rales, Rhonchi, Wheezes, Respiratory Distress - Cardiovascular Exam Cardiovascular Exam: RRR, +S1, +S2. absent: Diastolic murmur, Gallop, Rubs, Systolic Murmur - GI/Abdominal Exam GI & Abdominal Exam: Soft. absent: Distended, Guarding, Rebound, Tenderness - Extremities Exam Extremities exam: normal inspection - Back Exam Back exam: NORMAL INSPECTION - Neurological Exam Neurological exam: Alert, Oriented x3 - Psychiatric Exam Psychiatric exam: Normal Affect, Normal Mood - Skin Skin Exam: Dry, Intact, Normal Color, Warm Discharge Plan - Discharge Medications Prescriptions: Blood Sugar Diagnostic [Blood Glucose Test] 1 each ACHS 30 Days strip Blood-Glucose Meter 1 each ACHS #1 kit Ciprofloxacin [Cipro] 500 mg PO BID 5 Days tab Insulin Detemir [Levemir] 15 unit SC HS #1 Insulin Lispro [humALOG] See Protocol SC AC #1 Lancets 1 each ACHS 30 Days - Follow Up Plan Condition: STABLE Disposition: HOME/ ROUTINE Instructions: Pneumococcal Vaccine for Adults (DC), Urinary Tract Infection in Women (DC), Urinary Tract Infection in Men (DC), Cigarette Smoking and Your Health (GEN), Influenza (DC), Dysuria (GEN) Additional Instructions: 1. [facility] [place] 1 week 2. Complete 7 day course of antibiotics 3. Check blood glucose before meals and at night 4. Use humalog or short acting insulin before meals according to sliding scale 5. Use Levemir or long acting insulin before bed 6. Eat low carb, low sugar, low salt, low fat diet 7. If experiencing symptoms of hypoglycemia (dizziness, diaphoresis, CAR) measure blood glucose, if low drink orange juice and do not administer insulin at that time 8. If symptoms worsen return to ED. Referrals: [facility] [place] PCP,NO [Primary Care Provider] - <Jennifer Briceno - Last Filed: 03/29/17 15:51> Provider - Provider Date of Admission: 03/27/17 08:15 Attending physician: Ruth Sanchez MD Primary care physician: NO PRIMARY CARE PROVIDER Hospital Course - Lab Results Lab Results: Most Recent Lab Values WBC 4.9 10^3/ul (4.5-11.0) D 03/29/17 06:00 RBC 4.22 10^6/uL (3.5-6.1) 03/29/17 06:00 Hgb 11.8 g/dL (14.0-18.0) L 03/29/17 06:00 Hct 35.8 % (42.0-52.0) L 03/29/17 06:00 MCV 84.8 fl (80.0-105.0) 03/29/17 06:00 MCH 28.0 pg (25.0-35.0) 03/29/17 06:00 MCHC 33.0 g/dl (31.0-37.0) 03/29/17 06:00 RDW 12.5 % (11.5-14.5) 03/29/17 06:00 Plt Count 147 10^3/uL (120.0-450.0) 03/29/17 06:00 MPV 10.8 fl (7.0-11.0) 03/29/17 06:00 Gran % 57.3 % (50.0-68.0) 03/29/17 06:00 Lymph % (Auto) 27.7 % (22.0-35.0) 03/29/17 06:00 [place] % (Auto) 12.7 % (1.0-6.0) H 03/29/17 06:00 Eos % (Auto) 2.1 % (1.5-5.0) 03/29/17 06:00 Baso % (Auto) 0.2 % (0.0-3.0) 03/29/17 06:00 Gran # 2.79 (1.4-6.5) 03/29/17 06:00 Lymph # 1.4 (1.2-3.4) 03/29/17 06:00 [place] # 0.6 (0.1-0.6) 03/29/17 06:00 Eos # 0.1 (0.0-0.7) 03/29/17 06:00 Baso # 0.01 K/mm3 (0.0-2.0) 03/29/17 06:00 Sodium 135 mmol/L (132-148) 03/29/17 06:00 Potassium 4.1 mmol/L (3.6-5.0) 03/29/17 06:00 Chloride 101 mmol/L (98-107) 03/29/17 06:00 Carbon Dioxide 26 mmol/L (21-33) 03/29/17 06:00 Anion Gap 13 (10-20) 03/29/17 06:00 BUN 15 mg/dL (7-21) 03/29/17 06:00 Creatinine 0.9 mg/dl (0.8-1.5) 03/29/17 06:00 Est GFR ( Amer) > 60 03/29/17 06:00 Est GFR (Non-Af Amer) > 60 03/29/17 06:00 POC Glucose (mg/dL) 265 mg/dL (65-110) H 03/29/17 11:27 Random Glucose 224 mg/dL (70-110) H 03/29/17 06:00 Hemoglobin A1c 12.4 % (4.2-6.5) H 03/27/17 09:30 Calcium 8.5 mg/dL (8.4-10.5) 03/29/17 06:00 Phosphorus 3.1 mg/dL (2.5-4.5) 03/29/17 06:00 Magnesium 2.2 mg/dL (1.7-2.2) 03/29/17 06:00 Total Bilirubin 0.7 mg/dL (0.2-1.3) 03/29/17 06:00 Direct Bilirubin 0.7 mg/dL (0.0-0.4) H 03/27/17 09:30 AST 31 U/L (17-59) 03/29/17 06:00 ALT 47 U/L (7-56) 03/29/17 06:00 Alkaline Phosphatase 71 U/L (38-126) 03/29/17 06:00 Total Protein 6.7 g/dL (5.8-8.3) 03/29/17 06:00 Albumin 3.5 g/dL (3.0-4.8) 03/29/17 06:00 Globulin 3.2 gm/dL 03/29/17 06:00 Albumin/Globulin Ratio 1.1 (1.1-1.8) 03/29/17 06:00 Triglycerides 222 mg/dL (35-160) H 03/27/17 09:30 Cholesterol 408 mg/dL (130-200) H 03/27/17 09:30 LDL Cholesterol Direct 294 mg/dL (0-129) H 03/27/17 09:30 HDL Cholesterol 63 mg/dL (29-60) H 03/27/17 09:30 Urine Color Red (YELLOW) 03/27/17 05:15 Urine Appearance Turbid (CLEAR) 03/27/17 05:15 Urine pH 6.5 (4.7-8.0) 03/27/17 05:15 Ur Specific [place] 1.015 (1.005-1.035) 03/27/17 05:15 Urine Protein >=300 mg/dL (<30 mg/dL) H 03/27/17 05:15 Urine Glucose (UA) >=1000 mg/dL (NEGATIVE) 03/27/17 05:15 Urine Ketones >=80 mg/dL (NEGATIVE) 03/27/17 05:15 Urine Blood Large (NEGATIVE) H 03/27/17 05:15 Urine Nitrate Positive (NEGATIVE) H 03/27/17 05:15 Urine Bilirubin Negative (NEGATIVE) 03/27/17 05:15 Urine Urobilinogen 2.0 E.U./dL (<1 E.U./dL) H 03/27/17 05:15 Ur Leukocyte Esterase Moderate [place]/uL (NEGATIVE) H 03/27/17 05:15 Urine RBC Tntc /hpf (0-2) 03/27/17 05:15 Urine WBC 20 - 25 /hpf (0-6) 03/27/17 05:15 Ur Epithelial Cells 0 - 2 /hpf (0-5) 03/27/17 05:15 Urine Bacteria Small (NEG) 03/27/17 05:15 Alcohol, Quantitative < 10 mg/dL (0-10) 03/27/17 09:30 Hepatitis A IgM Ab Negative (NEGATIVE) 03/27/17 09:30 Hep Bs Antigen Negative (NEGATIVE) 03/27/17 09:30 Hep B Core IgM Ab Negative (NEGATIVE) 03/27/17 09:30 Hepatitis C Antibody Negative (NEGATIVE) 03/27/17 09:30 Attending/Attestation - Attestation I have personally seen and examined this patient.: Yes I have fully participated in the care of the patient.: Yes I have reviewed all pertinent clinical information, including history, physical exam and plan: Yes Notes (Text): 03/29/17 15:48 Patient was seen and examined with medical surgery nurse. Agreed with assessment and plan. 57 year old male with history of DM-2, HTN, HLD , and alcohol abuse was admitted with dysuria, hematuria and found to have cystitis. Urine culture is growing gram E coli. Patient was also found to have uncontrolled DM due to non compliance. He was started on levemir.Blood sugars are better controlled. The issue of compliance with medication and diet was discussed in detail with him. Patient will be discharged home and will follow up with [facility] Management plan was discussed in detail. Education was provided.
== END 2017-03-29 14:40 | disposition home or self-care (01) | DRG 320 ==
LOC: ED 04:26 → ERH 08:15 → 5RSO 09:38
PROVIDERS: ADMIT Hospitalist; ATTEND Hospitalist
DX: N30.91 Cystitis, unspecified with hematuria (principal); E11.65 Type 2 diabetes mellitus with hyperglycemia; E78.5 Hyperlipidemia, unspecified; I10 Essential (primary) hypertension; F10.10 Alcohol abuse, uncomplicated; Z79.4 Long term (current) use of insulin; Z91.19 Patient's noncompliance with other medical treatment and regimen; Z91.14 Patient's other noncompliance with medication regimen; Z87.891 Personal history of nicotine dependence